=== PATIENT | male | born 2000 | race Caucasian/White ===

== ENCOUNTER 2022-02-09 20:18 | Emergency (ER) | payer OTHER ==
[~2022-02-09] VITALS: Ht 193 cm; Wt 98.0 kg
[2022-02-09 20:32] VITALS: BP 113/77
[2022-02-10 02:42] LABS: CLARITY URINE CLEAR (CLEAR); COLOR URINE YELLOW (YELLOW); KETONES URINE NEGATIVE (NEGATIVE); LEUKOCYTE ESTERASE URINE NEGATIVE (NEGATIVE); NITRITE URINE NEGATIVE (NEGATIVE); OCCULT BLOOD URINE NEGATIVE (NEGATIVE); PROTEIN URINE NEGATIVE (NEGATIVE); SPECIFIC GRAVITY URINE 1.022 (1.005-1.030); UROBILINOGEN URINE 0.2 E.U./dL (0.2-1.0)
[2022-02-10] MEDS ORDERED: IBUP-2028 MT (02:56)
== END 2022-02-10 03:03 | disposition home or self-care (01) ==
LOC: ER 20:18
DX: N50.812 Left testicular pain (principal)
CPT/HCPCS: 76870; 81003; 93976; 99284